=== PATIENT | male | born 1960 | race Caucasian/White ===

== ENCOUNTER 2021-07-01 11:43 | Emergency (ER) | payer BC, OTHER ==
[2021-07-01 12:23] VITALS: BP 163/87; PULSE 69; RESP 18; TEMP 98.8
--- NOTE | 2021-07-01 12:49 | ED ---
General Adult HPI - General Chief complaint: Headache Stated complaint: Covid+/BAM Time Seen by Provider: 07/01/21 12:27 Source: patient Mode of arrival: ambulatory - History of Present Illness Initial comments: 61-year-old male presents to the emergency room for a chief complaint of antibody infusion. Patient states that he developed COVID-19 symptoms 6 days ago. On June 27 he tested positive at [facility]. Patient states he has had a mild cough, mild weakness congestion headache shortness of breath. Nothing too severe but it seems to be lingering so his doctor told him to come get the antibody infusion.patient was vaccinated for COVID-19. Patient has no other complaints at this time including signficant shortness of breath, chest pain, abdominal pain, nausea or vomiting or visual changes. - Related Data Home Medications Medication Instructions Recorded Confirmed Aspirin [Adult Low Dose Aspirin EC] 81 mg PO DAILY 05/20/16 05/20/16 Ezetimibe [Zetia] 10 mg PO Q48H 05/20/16 05/20/16 Famotidine [Pepcid] 20 mg PO DAILY PRN 05/20/16 05/20/16 Ibuprofen [Motrin] 800 mg PO DAILY PRN 05/20/16 05/20/16 Previous Rx's Medication Instructions Recorded Tobramycin 0.3% Ophth Soln [Tobrex 1 drop BOTH EYES Q4H 5 Days ml 05/20/16 0.3% Ophth Soln] Allergies Allergy/AdvReac Type Severity Reaction Status Date / Time No Known Allergies Allergy Verified 07/01/21 12:23 Review of Systems ROS Statement: Those systems with pertinent positive or pertinent negative responses have been documented in the HPI. ROS Other: All systems not noted in ROS Statement are negative. Past Medical History Past Medical History: Hyperlipidemia Additional Past Medical History / Comment(s): blind in right eye History of Any Multi-Drug Resistant Organisms: None Reported Past Surgical History: Orthopedic Surgery Additional Past Surgical History / Comment(s): right eye Past Psychological History: No Psychological Hx Reported Smoking Status: Former smoker Past Alcohol Use History: Occasional Past Drug Use History: None Reported General Exam General appearance: alert, in no apparent distress Head exam: Present: atraumatic Eye exam: Present: normal appearance, PERRL, EOMI. Absent: scleral icterus, conjunctival injection ENT exam: Present: normal exam, mucous membranes moist Neck exam: Present: normal inspection, full ROM. Absent: tenderness Respiratory exam: Present: normal lung sounds bilaterally. Absent: respiratory distress, wheezes Cardiovascular Exam: Present: regular rate, normal rhythm, normal heart sounds Course Vital Signs 07/01/21 12:18 Temperature 98.8 F Pulse Rate 69 Respiratory 18 Rate Blood Pressure 163/87 O2 Sat by Pulse 96 Oximetry Medical Decision Making - Medical Decision Making Vitals are stable. Patient is well appearing. Antibodies were ordered for patient. He is stable for outpatient follow-up. He will return here for any worsening symptoms. Disposition Clinical Impression: COVID-19 Disposition: HOME SELF-CARE Condition: Good Instructions (If sedation given, give patient instructions): Coronavirus Disease 2019 (COVID-19) Additional Instructions: Alternate Motrin and Tylenol for pain. Take vitamin C, D, and zinc [id number]. Follow-up with your doctor in 1-2 days. Return to the emergency room for any worsening symptoms. Is patient prescribed a controlled substance at d/c from ED?: No Referrals: Rick Fletcher MD [Primary Care Provider] - 1-2 days Time of Disposition: 12:48
[2021-07-01] MEDS ORDERED: SODIUM CHLORIDE 0.9% 50 ML IVPB ONE (13:15)
[2021-07-01] MEDS ORDERED: BAMLANIVIMAB (EUA) 700 MG, ETESEVIMAB (EUA) 1,400 MG in SODIUM CHLORIDE 0.9% 50 ML IVPB ONE (13:15)
== END 2021-07-01 15:19 | disposition home or self-care (01) ==
LOC: EC 11:43
DX: U07.1 COVID-19 (principal); Z87.891 Personal history of nicotine dependence; Z79.82 Long term (current) use of aspirin
CPT/HCPCS: 99284; J3490